=== PATIENT | male | born 1995 | race Hispanic/Latino ===

== ENCOUNTER 2017-10-13 10:37 | Outpatient (CLI) | payer OTHER ==
[~2017-10-13 10:37] MED LIST: NACL 0.9% 0 ML IR ONE; NACL 0.9% 500 ML 0 ML ONE
--- NOTE | 2017-10-13 15:12 | Magnetic Resonance Report ---
MRI BRAIN WITH/WITHOUT CONTRAST: History: [facility] screening. Family history of von Hippel-Lindau syndrome. Technique: Multiple T1 and T2 weighted images were obtained in multiple planes. Axial diffusion and gradient imaging was performed. Post contrast T1 images in two planes were obtained following IV gadolinium. Findings: A 2.1 x 3.0 x 2.4 cm enhancing mass is identified just anterior to the left frontal lobe. This appears to be an extra axial mass. There is minimal internal heterogeneity or cystic change. There is suggestion of a dural tail on the axial T1 postcontrast image 19. There is moderate edema in the white matter of the left frontal lobe presumably from mass effect secondary to the mass. There is also a tiny 3 mm enhancing nodule in the inferior left cerebellum on axial T1 postcontrast image 6 and coronal T1 postcontrast image 9. The remaining brain parenchyma signal intensity and its ansari-white interface are normal on all sequences. No hemorrhage or extra-axial fluid collection. Ventricular size is normal and symmetric. The basal cisterns are clear. The brainstem and cerebellar hemispheres are within normal limits. The fourth ventricle is midline. The paranasal sinuses and mastoid air cells are well aerated. Orbital cavities and contents are unremarkable. Normal flow voids are identified in the appropriate vessels at the [place]. Impression: A 2.1 x 3.0 x 2.4 cm slightly complex enhancing mass is identified in the left frontal region. There is moderate white matter edema surrounding this lesion. This appears to be an extra axial mass. There is also a tiny solid focus of enhancement in the inferior left cerebellum as described above. Given the family history of von Hippel-Lindau syndrome, a hemangioblastoma is cannot be entirely excluded. The left frontal lesion could also represent a meningioma. Recommend consultation with neurology or neurosurgery.
--- NOTE | 2017-10-13 15:29 | Cat Scan Report ---
CT ABDOMEN PELVIS WITH CONTRAST: HISTORY: Family history of von Hippel-Lindau syndrome. COMPARISON: none. TECHNIQUE: Helical CT in 1.25mm intervals following IV contrast. Sagittal and coronal reconstructions. FINDINGS: Lung bases: Normal. Liver: Normal. Biliary system: Normal. Pancreas: Normal. Spleen: Normal. Kidneys/ureters/bladder: The kidneys are normal size, contour and position. There are a few scattered simple cysts in both kidneys measuring up to 1 cm. No evidence for renal mass. The collecting systems and bladder are unremarkable. Adrenal glands: Normal. Aorta: Normal caliber. No atherosclerotic disease. No evidence for pheochromocytoma. Intestines: Normal. Appendix: Normal. Pelvic viscera: Normal. Ascites: None. Adenopathy: None. Musculoskeletal: Normal. IMPRESSION: Essentially unremarkable CT the abdomen and pelvis. No findings to suggest von Hippel-Lindau syndrome in the abdomen. Few scattered simple appearing renal cysts measuring up to 1 cm.
== END 2017-10-13 10:38 | disposition home or self-care (01) ==
LOC: MRI 10:37
PROVIDERS: ATTEND Internal Medicine
DX: Z13.9 Encounter for screening, unspecified (principal); N28.1 Cyst of kidney, acquired; G93.89 Other specified disorders of brain; Q85.8 Other phakomatoses, not elsewhere classified; Z82.79 Family history of other congenital malformations, deformations and chromosomal abnormalities
CPT/HCPCS: 70553; 74177; A9577; Q9967; J7040